=== PATIENT | male | born 1955 | race African-American/Black ===

== ENCOUNTER 2023-01-01 07:28 | Day surgery (SDC) | payer BC ==
[2022-12-25 13:18] VITALS: BMI 21.4
[2023-01-01] MEDS ORDERED: PROPOFOL 40 ML ONE (07:34)
[2023-01-01] MEDS ORDERED: LIDOCAINE HCL/PF 2% SDV 5ML VIAL ONE (07:34)
[2023-01-01 08:47] VITALS: TEMP 97.5
[2023-01-01 08:54] VITALS: BP 118/72; PULSE 67; RESP 20
== END 2023-01-01 09:10 | disposition home or self-care (01) ==
LOC: FASU-ENDO 07:28
PROVIDERS: ATTEND Internal Medicine Gastroenterology
PROC: 0DBH8ZX Excision of Cecum, Via Natural or Artificial Opening Endoscopic, Diagnostic (ICD-10-PCS; principal; 2023-01-01 08:15)
DX: Z12.11 Encounter for screening for malignant neoplasm of colon (principal); D12.0 Benign neoplasm of cecum
CPT/HCPCS: 88305-TC